=== PATIENT | female | born 1960 | race African-American/Black ===

== ENCOUNTER 2022-06-21 03:51 | Emergency (ER) | payer BC ==
[~2022-06-21] VITALS: Ht 170.2 cm; Wt 80.0 kg
[2022-06-21 06:30] VITALS: BP 142/92
[2022-06-21] MEDS ORDERED: ACETAMINOPHEN WITH CODEINE 300/30MG TABLET PO ONE (06:30)
[2022-06-21] MEDS ORDERED: KETOROLAC 60MG/2ML VIAL IM ONE (06:30)
[2022-06-21] MEDS ORDERED: T3 PO (07:43)
[2022-06-21] MEDS ORDERED: IBUP-2028 PO (07:43)
== END 2022-06-21 08:11 | disposition home or self-care (01) ==
LOC: ER 03:51
DX: S76.811A Strain of other specified muscles, fascia and tendons at thigh level, right thigh, initial encounter (principal); M54.30 Sciatica, unspecified side; F17.210 Nicotine dependence, cigarettes, uncomplicated; X58.XXXA Exposure to other specified factors, initial encounter; Y93.9 Activity, unspecified
CPT/HCPCS: 73552; 96372; 99283; J1885